=== PATIENT | male | born 1965 | race African-American/Black ===

== ENCOUNTER 2020-06-02 06:48 | Outpatient (CLI) | payer BC, SELFPAY ==
--- NOTE | ~2020-06-02 | MR_ITS ---
EXAMINATION: MR knee RT wo con DATE: 06/02/2020 07:50 INDICATION: Internal derangement of the right knee presenting with medial right knee pain TECHNIQUE: Magnetic resonance imaging (MRI) of the right knee was performed without intravenous contr ast. Sequences included coronal PD-weighted FSE, coronal PD-weighted FS FSE, sagittal T2-weighted FS E, sagittal PD-weighted FS FSE and axial PD weighted fat saturated FSE. COMPARISON: Radiograph dated 05/26/2020 FINDINGS: Medial compartment: The posterior horn of the medial meniscus is small with minimal if any residual meniscal tissue at th e body suggesting change of prior partial meniscectomy. There is deep chondral ulceration with underl rasheed subarticular edema and adjacent marginal osteophyte along the medial rim of the medial tibial pl ateau. A severe partial thickness cartilage loss and deep chondral fissuring with minimal subarticula r edema along the medial margin of the anterior weightbearing medial femoral condyle. Additional deep fissuring with cortical irregularity, tiny subchondral cyst and mild surrounding edema at the overage shortage and damage clerk ior weightbearing medial femoral condyle. Finally there is less severe partial thickness chondral fis suring without degenerative subchondral changes at the lateral aspect of the central weightbearing me dial femoral condyle. Lateral compartment: Lateral meniscus is normal. Partial-thickness chondral ulceration and deep fissuring with mild subart icular edema along the posterior half of the lateral tibial plateau. Patellofemoral compartment: Partial-thickness chondral ulceration and scattered deep fissuring extending across the cephalad aspe ct of the medial lateral trochlea and intervening trochlear groove. There is underlying cortical irre gularity and subarticular edema along the superolateral aspect of the lateral trochlea. Small patella r and trochlear marginal osteophytes are present. Ligaments and tendons: Anterior and posterior cruciate ligaments are normal. The medial collateral ligament and fibular dany ateral ligament complex are normal. Mild patellar and distal quadriceps tendinopathy. The visualized medial and lateral hamstring tendons as well as the iliotibial band are normal. Fluid: Physiologic amount of fluid in the joint space. No loose osteochondral bodies identified. Small Sewell 's cyst. 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 No fracture or pathologic marro w replacing process. There is edema in Hoffa's fat pad along the inferolateral margin of the patella. IMPRESSION: 1. Small posterior horn and diminutive body of the medial meniscus suggesting prior partial meniscect estefany. Correlate with surgical history. No other meniscal tear. 2. Mild tricompartmental osteoarthritis with regions of high-grade chondromalacia in all 3 compartmen ts as detailed above. 3. Edema in Hoffa's fat pad along the inferolateral patella consistent with fat pad impingement syndr ome 4. Mild patellar and distal quadriceps tendinopathy. Reviewed, dictated and finalized at location [facility] [employer] IMPRESSION: 1. Small posterior horn and diminutive body of the medial meniscus suggesting p rior partial meniscectomy. Correlate with surgical history. No other meniscal t ear. 2. Mild tricompartmental osteoarthritis with regions of high-grade chondromalac ia in all 3 compartments as detailed above. 3. Edema in Hoffa's fat pad along the inferolateral patella consistent with fat pad impingement syndrome 4. Mild patellar and distal quadriceps tendino
== END 2020-06-02 06:49 | disposition home or self-care (01) ==
PROVIDERS: PCP Family Medicine; Visit Provider Orthopaedic Surgery
DX: M23.8X1 Other internal derangements of right knee (principal); M23.306 Other meniscus derangements, unspecified meniscus, right knee; M17.11 Unilateral primary osteoarthritis, right knee; M94.261 Chondromalacia, right knee; R60.9 Edema, unspecified; M76.891 Other specified enthesopathies of right lower limb, excluding foot
CPT/HCPCS: 73721